=== PATIENT | male | born 2005 | race Caucasian/White ===

== ENCOUNTER 2024-07-21 19:39 | Outpatient (REF) | payer BC, SELFPAY ==
--- NOTE | ~2024-07-21 | MR_ITS ---
EXAMINATION: MR LUMBAR SPINE WITHOUT CONTRAST CLINICAL INFORMATION: Low back pain COMPARISON: None available. TECHNIQUE: MRI of the lumbar spine was obtained using routine sequences without contrast. FINDINGS: The visualized lumbar vertebrae are intact with normal alignment. No focal bone lesion with abnormal signal can be seen. Evaluation of the intervertebral discs show: T12/L1: Intervertebral disc height is normal, with normal T2 signal. No focal disc herniation is seen. Bilateral T12/L1 neuroforamina are patent. Bilateral apophyseal joints are intact with normal alignment. L-1/L-2: Intervertebral disc height is normal, with normal T2 signal. No focal disc herniation is seen. Bilateral L1-L2 neuroforamina are patent. Bilateral apophyseal joints are intact with normal alignment. L2/L3: Intervertebral disc height is normal, with normal T2 signal. No focal disc herniation is seen. Bilateral L2-L3 neuroforamina are patent. Bilateral apophyseal joints are intact with normal alignment. L3/L4: Intervertebral disc height is normal, with normal T2 signal. No focal disc herniation is seen. Bilateral L3-L4 neuroforamina are patent. Bilateral apophyseal joints are intact with normal alignment. L4/L5: Intervertebral disc height is normal, with normal T2 signal. No focal disc herniation is seen. Bilateral L4-L5 neuroforamina are patent. Bilateral apophyseal joints are intact with normal alignment. L5/S1: Intervertebral disc height is markedly decreased, with moderate loss of T2 signal. Large asymmetric right posterior disc protrusion effacing the right anterior thecal sac and right lateral recess is seen. Bilateral L5-S1 neuroforamina are patent. Bilateral apophyseal joints are intact with normal alignment. Conus medullaris is seen normally at L1 level. MR/MR lumbar spine wo con IMPRESSION: 1. Large asymmetric right posterior disc protrusion at L5-S1 effacing the right anterior thecal sac and right lateral recess. 2. Marked L5-S1 degenerative lumbar disc disease. Electronically signed by: Florentino López MD 07/22/2024 09:12 AM EDT
== END 2024-07-21 19:40 | disposition home or self-care (01) ==
LOC: HO.MRI 19:39
PROVIDERS: PCP Family Medicine; Visit Provider Family Medicine
DX: M54.50 Low back pain, unspecified (principal)
CPT/HCPCS: 72148